=== PATIENT | female | born 1985 | race American Indian/Alaskan Native ===

== ENCOUNTER 2020-05-29 14:55 | Emergency (ER) | payer OTHER ==
[~2020-05-29] VITALS: Ht 167.6 cm; Wt 65.8 kg
[2020-05-29] MEDS ORDERED: MINIPRESS1 MG PO (15:19)
[2020-05-29] MEDS ORDERED: ABILIFY15 MG PO (15:19)
[2020-05-29] MEDS ORDERED: SUBOXONE 12 MG1 EACH PO (15:20)
[2020-05-29] MEDS ORDERED: COLACE100 MG (15:20)
[2020-05-29] MEDS ORDERED: DULCOLAX10 MG PR (15:25)
[2020-05-29] MEDS ORDERED: ENULOSE10 GM/15 M PO (15:25)
--- OUTSIDE RECORDS SUMMARY | 2020-05-29 15:54 | XMS ---
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 EEle VISIT COUNT ([address] 3 [facility] 1 [facility] TOTAL 5 NOTE: Visits indicate total known visits. ED/UCC VISIT TRACKING (12 MO.) 05/29/2020 14:56 [facility] [place] TYPE: Emergency COMPLAINT: - CONSTIPATION 04/19/2020 04:27 [facility]. [place] TYPE: Emergency DIAGNOSES: - suicidal - Mental Health Problem - Other psychoactive substance abuse, uncomplicated - Suicidal ideations 03/04/2020 09:54 [facility] [place] TYPE: Emergency DIAGNOSES: - Sepsis, unspecified organism - Cardiomyopathy due to drug and external agent - Constipation - Severe sepsis with septic shock - Drug induced constipation - constipated 12/11/2019 23:13 [facility] [place] TYPE: Emergency DIAGNOSES: - Ingestion - See nurse 10/02/2019 10:11 [facility] DAY OR TYPE: Emergency COMPLAINT: - SNORTED GABAPENTIN DIAGNOSES: - Underdosing of other antiepileptic and sedative-hypnotic drugs, initial encounter - Post-traumatic stress disorder, unspecified - Post-traumatic stress disorder, unspecified - Patient's unintentional underdosing of medication regimen for other reason - Patient's unintentional underdosing of medication regimen for other reason - Underdosing of other antiepileptic and sedative-hypnotic drugs, initial encounter INPATIENT VISIT TRACKING (12 MO.) 03/04/2020 16:40 [facility] [place] TYPE: Intensive Care DIAGNOSES: - Shock, unspecified [email or web address]
== END 2020-05-29 16:06 | disposition home or self-care (01) ==
LOC: ED 14:55
DX: K59.00 Constipation, unspecified (principal); Z79.899 Other long term (current) drug therapy
CPT/HCPCS: 51798; 74022; 99283-25

== ENCOUNTER 2020-12-01 10:41 | Emergency (ER) | payer OTHER ==
[~2020-12-01] VITALS: Ht 167.6 cm; Wt 65.8 kg
[~2020-12-01 10:41] MED LIST: ABILIFY15 MG PO; COLACE100 MG; DULCOLAX10 MG PR; ENULOSE10 GM/15 M PO; MINIPRESS1 MG PO; SUBOXONE 12 MG1 EACH PO
--- OUTSIDE RECORDS SUMMARY | 2020-12-01 10:46 | XMS ---
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 EEle VISIT COUNT (12 [address] 1 [facility] [address] [place] [address] TOTAL 11 NOTE: Visits indicate total known visits. ED/UCC VISIT TRACKING (12 MO.) 12/01/2020 10:43 [facility] [place] TYPE: Emergency COMPLAINT: - FALL, R EYE LAC 11/09/2020 22:36 [facility] [place] TYPE: Emergency DIAGNOSES: - Other stimulant abuse, uncomplicated - Chest Pain - Pain With Breathing - Pleurodynia - Suicidal ideations 10/26/2020 18:50 [facility] TYPE: Emergency DIAGNOSES: - suicidal thoughts, extreme depression - Suicidal - Major depressive disorder, single episode, unspecified 10/26/2020 09:17 [facility] [place] TYPE: Emergency DIAGNOSES: - Shoulder Pain - Unspecified dislocation of left acromioclavicular joint, initial encounter - shoulder injury 10/25/2020 10:42 [facility] [place] TYPE: Emergency COMPLAINT: - EMS RUN DIAGNOSES: - EMS RUN 10/21/2020 16:57 [facility] [place] TYPE: Emergency DIAGNOSES: - Anxiety disorder, unspecified - Hypokalemia - Chest pain, unspecified - Arm Pain - chest pains - Chest Pain 08/09/2020 21:41 [facility] [place] TYPE: Emergency DIAGNOSES: - Ingestion - Suicidal - overdose - Poisoning by antiallergic and antiemetic drugs, intentional self-harm, initial encounter 05/29/2020 14:[address] [facility] [place] TYPE: Emergency COMPLAINT: - CONSTIPATION DIAGNOSES: - Constipation, unspecified - Other [facility] (current) drug therapy 04/19/2020 04:27 [facility] [place] TYPE: Emergency DIAGNOSES: - suicidal - Mental Health Problem - Other psychoactive substance abuse, uncomplicated - Suicidal ideations 03/04/2020 09:54 [facility] [place] TYPE: Emergency DIAGNOSES: - Sepsis, unspecified organism - Cardiomyopathy due to drug and external agent - Constipation - Severe sepsis with septic shock - Drug induced constipation - constipated 12/11/2019 23:13 [facility] [place] TYPE: Emergency DIAGNOSES: - Ingestion - See nurse INPATIENT VISIT TRACKING (12 MO.) 03/04/2020 16:40 [facility] [place] TYPE: Intensive Care DIAGNOSES: - Shock, unspecified [email or web address]
== END 2020-12-01 11:42 | disposition home or self-care (01) ==
LOC: ED 10:41
PROC: 0HQ1XZZ Repair Face Skin, External Approach (ICD-10-PCS; principal; 2020-12-01)
DX: R55 Syncope and collapse (principal); S01.111A Laceration without foreign body of right eyelid and periocular area, initial encounter; Z23 Encounter for immunization; W22.8XXA Striking against or struck by other objects, initial encounter; Z79.899 Other long term (current) drug therapy; F17.200 Nicotine dependence, unspecified, uncomplicated
CPT/HCPCS: 12051; 90471; 90714; 99284-25

== ENCOUNTER 2020-12-01 19:23 | Emergency (ER) | payer OTHER ==
[~2020-12-01] VITALS: Ht 167.6 cm; Wt 65.8 kg
--- OUTSIDE RECORDS SUMMARY | 2020-12-01 21:12 | XMS ---
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 Tara VISIT COUNT (12 [address] 1 [facility] [place] [address] [place] [address] TOTAL 12 NOTE: Visits indicate total known visits. ED/UCC VISIT TRACKING (12 MO.) 12/01/2020 19:24 [facility] [place] TYPE: Emergency COMPLAINT: - NAUSEA, HEADACHE 12/01/2020 10:43 [facility] [place] TYPE: Emergency COMPLAINT: - FALL, R EYE LAC 11/09/2020 22:36 [facility] [place] TYPE: Emergency DIAGNOSES: - Other stimulant abuse, uncomplicated - Chest Pain - Pain With Breathing - Pleurodynia - Suicidal ideations 10/26/2020 18:50 [facility] [place] TYPE: Emergency DIAGNOSES: - suicidal thoughts, extreme depression - Suicidal - Major depressive disorder, single episode, unspecified 10/26/2020 09:17 [facility] [place] TYPE: Emergency DIAGNOSES: - Shoulder Pain - Unspecified dislocation of left acromioclavicular joint, initial encounter - shoulder injury 10/25/2020 10:42 [facility] [place] TYPE: Emergency COMPLAINT: - EMS RUN DIAGNOSES: - EMS RUN 10/21/2020 16:57 [facility] [place] TYPE: Emergency DIAGNOSES: - Anxiety disorder, unspecified - Hypokalemia - Chest pain, unspecified - Arm Pain - chest pains - Chest Pain 08/09/2020 21:41 [facility] [place] TYPE: Emergency DIAGNOSES: - Ingestion - Suicidal - overdose - Poisoning by antiallergic and antiemetic drugs, intentional self-harm, initial encounter 05/29/2020 14:56 [facility] [place] TYPE: Emergency COMPLAINT: - CONSTIPATION DIAGNOSES: - Constipation, unspecified - Other senior living (current) drug therapy 04/19/2020 04:27 [facility] [place] TYPE: Emergency DIAGNOSES: - suicidal - Mental Health Problem - Other psychoactive substance abuse, uncomplicated - Suicidal ideations 03/04/2020 09:54 [facility] [place] TYPE: Emergency DIAGNOSES: - Sepsis, unspecified organism - Cardiomyopathy due to drug and external agent - Constipation - Severe sepsis with septic shock - Drug induced constipation - constipated 12/11/2019 23:13 [facility] [place] TYPE: Emergency DIAGNOSES: - Ingestion - See nurse INPATIENT VISIT TRACKING (12 MO.) 03/04/2020 16:40 [facility] [place] TYPE: Intensive Care DIAGNOSES: - Shock, unspecified [email or web address]
== END 2020-12-01 22:24 | disposition home or self-care (01) ==
LOC: ED 19:23
DX: R51.9 Headache, unspecified (principal); R11.0 Nausea; F17.200 Nicotine dependence, unspecified, uncomplicated; Z79.899 Other long term (current) drug therapy
CPT/HCPCS: 70450; 99284-25; A9270